=== PATIENT | female | born 1995 ===

== ENCOUNTER 2020-11-15 08:14 | Emergency (ER) | payer BC ==
[~2020-11-15] VITALS: Ht 167.6 cm; Wt 68.0 kg
[2020-11-15] MEDS ORDERED: CEPHALEXIN750 MG (08:40)
[2020-11-15] MEDS ORDERED: BACTRIM 400-801 EACH (08:41)
== END 2020-11-15 11:56 | disposition home or self-care (01) ==
LOC: ER 08:14
DX: N61.1 Abscess of the breast and nipple (principal)